=== PATIENT | female | born 1980 | race Caucasian/White ===

== ENCOUNTER 2017-01-28 11:28 | Emergency (ER) | payer SELFPAY ==
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
[2017-01-28] MEDS ORDERED: BOOSTRIX IM ONE (12:41)
[2017-01-28] MEDS ORDERED: ANCEF/NS 1 GM/50 ML 1 GM/50 ML BAG IV ONE (12:41)
[2017-01-28] MEDS ORDERED: NACL 0.9% 1000 ML 1,000 ML IV ONE (12:41)
[2017-01-28] MEDS ORDERED: MORPHINE IV ONE (12:41)
[2017-01-28] MEDS ORDERED: NACL 0.9% IR ONE (12:41)
[2017-01-28 12:42] LABS: Basophils % (Auto) 0.4 % (0.0-1.8); Eosinophils % (Auto) 1.9 % (0.0-4.3); Hematocrit 43.1 % (30.3-42.9); Hemoglobin 14.3 gm/dl (10.1-14.3); Mean Corpuscular HGB Conc 33 % (30-34); Mean Corpuscular Hemoglobin 29 pg (28-32); Mean Corpuscular Volume 87 fl (79-97); Platelet Count 200 K/mm3 (140-440); Red Blood Count 4.95 M/mm3 (3.65-5.03); Red Cell Distribution Width 13.9 % (13.2-15.2); White Blood Count 8.8 K/mm3 (4.5-11.0)
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
[2017-01-28 12:51] LABS: INR 1.01 (0.87-1.13)
[2017-01-28 12:52] LABS: Partial Thromboplastin Time 29.6 Sec. (24.2-36.6)
[2017-01-28 12:57] LABS: Alanine Aminotransferase 11 units/L (7-56); Albumin 4.6 g/dL (3.9-5); Albumin/Globulin Ratio 1.5 %; Alkaline Phosphatase 41 units/L (35-129); Anion Gap 18 mmol/L; Blood Urea Nitrogen 18 mg/dL (7-17); Calcium 9.4 mg/dL (8.4-10.2); Carbon Dioxide 25 mmol/L (22-30); Chloride 100.2 mmol/L (98-107); Creatine Kinase 127 units/L (30-135); Glucose 153 mg/dL (65-100); Lactate Dehydrogenase 178 units/L (91-180); Sodium 138 mmol/L (137-145); Total Protein 7.6 g/dL (6.3-8.2)
[2017-01-28] MEDS ORDERED: XYLOCAINE 2%/ EPI 1:200,000 INFILTRATI ONE (12:58)
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
[2017-01-28] MEDS ORDERED: XYLOCAINE 1%/ EPI 1:100,000 INFILTRATI ONE (13:41)
[2017-01-28] MEDS ORDERED: NACL 0.9% 1,000 ML IR ONE (13:41)
--- NOTE | 2017-01-28 13:43 | XRay Report ---
AP PELVIS: AP view of the pelvis shows normal pelvic contour and soft tissues. The hips are symmetric and within normal limits as are the sacroiliac joints. IMPRESSION: Normal pelvis.
--- NOTE | 2017-01-28 13:44 | XRay Report ---
LEFT FOOT, 2 views: The bony architecture is intact. Bony alignment is normal. No soft tissue abnormalities are seen. The joint spaces appear preserved. IMPRESSION: Normal left foot.
--- NOTE | 2017-01-28 13:44 | XRay Report ---
AP CHEST: HISTORY: chest pain AP view of the chest demonstrates a normal mediastinal and cardiac contour with clear lungs and normal bony and soft tissue structures. IMPRESSION: Unremarkable AP chest.
[2017-01-28] MEDS ORDERED: ANTIBIOTIC OINT TP ONE (14:19)
[2017-01-28] MEDS ORDERED: TRIPLE ANTIBIOTIC TP ONE ×2 (15:13→16:03)
[2017-01-28 15:22] LABS: Bilirubin,Urine NEG (Negative); Blood,Urine NEG (Negative); Ketones,Urine TR mg/dL (Negative); Leukocyte Esterase,Urine TR (Negative); Nitrite,Urine NEG (Negative); Protein,Urine <15 mg/dL mg/dL (Negative); Urobilinogen,Urine < 2.0 mg/dL (<2.0); WBC,Urine < 1.0 /HPF (0.0-6.0)
[2017-01-28 16:09] VITALS: BP 99/62
== END 2017-01-28 16:55 | disposition home or self-care (01) ==
LOC: ED 11:28
DX: S01.01XA Laceration without foreign body of scalp, initial encounter (principal); S91.312A Laceration without foreign body, left foot, initial encounter; W17.89XA Other fall from one level to another, initial encounter; Y93.39 Activity, other involving climbing, rappelling and jumping off; Y99.8 Other external cause status; Y92.89 Other specified places as the place of occurrence of the external cause
CPT/HCPCS: 12001; 36415; 70450; 71010; 72170; 73620; 80053; 81001; 81025; 82550; 83615; 84484; 85025; 85610; 85730; 90471; 90715; 96365; 96375; 99284; G0480; J0690; J2270; J7030; 80320; A6250

== ENCOUNTER 2017-02-07 14:39 | Emergency (ER) | payer SELFPAY ==
[2017-02-07 15:16] VITALS: BP 111/75
--- NOTE | 2017-02-07 15:35 | Emergency Department Report ---
Entered by SHALA ZARATE, acting as scribe for DARLING MARTE NP. Suture/Staple Removal - [facility] Chief Complaint: Laceration/Recheck/Suture Stated Complaint: SUTURE REMOVAL When Sutures or Marc Placed: 8-10 Days Ago (01/28/2017) Wound Location: right occipital head region ED Review of Systems ROS: Stated complaint: SUTURE REMOVAL Other details as noted in HPI Constitutional: no symptoms reported. denies: chills, fever Eyes: denies: eye pain, eye discharge, vision change ENT: denies: ear pain, throat pain Respiratory: denies: cough, shortness of breath, wheezing Cardiovascular: denies: chest pain, palpitations Endocrine: no symptoms reported Gastrointestinal: denies: abdominal pain, nausea, diarrhea Genitourinary: denies: urgency, dysuria, discharge Musculoskeletal: denies: back pain, joint swelling, arthralgia Skin: denies: rash, lesions Neurological: denies: headache, weakness, paresthesias Psychiatric: denies: anxiety, depression Hematological/Lymphatic: denies: easy bleeding, easy bruising ED Past Medical Hx - Past Medical History Previous Medical History?: Yes Hx Hypertension: No Hx Congestive Heart Failure: No Hx Diabetes: Yes (GDM) Hx Deep Vein Thrombosis: No Hx Renal Disease: No Hx Sickle Cell Disease: No Hx Seizures: No Hx Asthma: No Hx COPD: No Hx HIV: No - Surgical History Past Surgical History?: No - Social History Smoking Status: Never Smoker Substance Use Type: None - Medications Home Medications: Home Medications Medication Instructions Recorded Confirmed Last Taken Type Bacitracin Zinc Oint [Antibiotic 1 applicatio TP BID #2 tube 01/28/17 Unknown Rx Oint] Cephalexin [Keflex] 500 mg PO BID #10 capsule 01/28/17 Unknown Rx Ibuprofen [Motrin] 600 mg PO Q8H PRN #30 tablet 01/28/17 Unknown Rx Bacitracin [Bacitracin Ophth] 1 applicatio OP BID #1 tube 02/07/17 Unknown Rx Suture Removal Exam - Exam General: Vital signs noted. General: well nourished, well developed, 36 year old female in no acute distress and nontoxic in appearance Wound: No Pathologic Erythema, No Tenderness, No Drainage, No Pus, No Wound Dehiscence Other Systems: Head: Normocephalic. Healed laceration to right occipital region. NECK: Supple. No carotid bruits. No lymphadenopathy or thyromegaly Eyes: PERRL, Extraocular muscles are intact. LUNGS: Clear to auscultation. Non labor breathing. No intercostal retractions. HEART: Regular rate and rhythm without murmur, rubs or gallops. NEUROLOGIC: Alert and oriented x 3. Normal gait. Psych: Normal mood and behavior Skin: Clean, dry, and intact with no rash and no lesions. Abrasion present on left foot. ED Course Vital Signs 02/07/17 15:13 Temperature 98.7 F Pulse Rate 62 Respiratory 16 Rate Blood Pressure 111/75 O2 Sat by Pulse 100 Oximetry - Procedure Description Procedures done: 4 marc was removed from right occipital region using sterile equipment ED Recheck MDM - Medical Decision Making marc x 3 dc'd wound healing edges well approximated no erythema no discharge no bleeding no symptoms of infection Critical care attestation.: If time is entered above; I have spent that time in minutes in the direct care of this critically ill patient, excluding procedure time. ED Disposition Clinical Impression: Encounter for staple removal Disposition: DC-01 TO HOME OR SELFCARE Is pt being admited?: No Does the pt Need Aspirin: No Condition: Good Instructions: Suture Care (ED) Prescriptions: Bacitracin [Bacitracin Ophth] 1 applicatio OP BID #1 tube Time of Disposition: 15:33 This documentation as recorded by the ELLIOT fabian JASMINE,accurately reflects the service I personally performed and the decisions made by , DARLING MARTE NP.
== END 2017-02-07 15:35 | disposition home or self-care (01) ==
LOC: ED 14:39
DX: Z48.02 Encounter for removal of sutures (principal)

== ENCOUNTER 2018-01-03 12:44 | Emergency (ER) | payer OTHER ==
--- NOTE | 2018-01-03 15:58 | Emergency Department Report ---
Chief Complaint: Headache Stated Complaint: HEADACHE Time Seen by Provider: 01/03/18 15:25 - HPI History of Present Illness: 37-year-old [place] female presents to the emergency department with complaint of a one-week headache to left-sided head and going down into the neck. She denies any vision change, slurred speech, any neurological deficits, nausea, vomiting or fever. She tried Tylenol one time for her discomfort without any relief. Patient does not speak much Thai and translation services were used. - ROS Review of Systems: Positive for headache Negative for vision change, slurred speech, fever, nausea, vomiting - Exam Vital Signs: Vital Signs 01/03/18 12:49 Temperature 99.8 F H Pulse Rate 90 Respiratory 18 Rate Blood Pressure 113/77 O2 Sat by Pulse 97 Oximetry Physical Exam: Patient appears awake and alert in no acute distress. Pupils equal reactive to light. Extraocular motion is intact intact. Heart and lung sounds are normal to auscultation. MSE screening note: Focused history and physical exam performed. Due to findings the following was ordered: Patient will have a CT scan of the head without contrast. ED Disposition for MSE Condition: Stable Referrals: PRIMARY CARE, [Primary Care Provider] - 3-5 Days
[2018-01-03 16:59] LABS: HCG Qualitative,Urine Negative (Negative)
--- NOTE | 2018-01-03 18:22 | Cat Scan Report ---
FINAL REPORT PROCEDURE: CT HEAD/BRAIN WO CON TECHNIQUE: Computerized tomography of the head was performed without contrast material. HISTORY: headache COMPARISON: No prior studies are available for comparison. FINDINGS: Brain: Brain density appears normal. No evidence of intracranial hemorrhage. No parenchymal hemorrhage, mass lesions or mass effect are seen. No abnormal extraxial fluid collects or masses are seen. Ventricles: Ventricles are normal size and are midline. Bone Windows: No evidence of skull fracture. Paranasal sinuses: Visualized portions appear clear. Mastoid air cells: Clear IMPRESSION: Negative examination
[2018-01-03] MEDS ORDERED: MOTRIN PO ONE (20:08)
--- NOTE | 2018-01-03 20:08 | Emergency Department Report ---
ED Headache HPI - General Chief Complaint: Headache Stated Complaint: HEADACHE Time Seen by Provider: 01/03/18 15:25 - History of Present Illness Initial Comments: 37-year-old [place]ian female presents to the emergency department with complaint of a one-week headache to left-sided head and going down into the neck. She denies any vision change, slurred speech, any neurological deficits, nausea, vomiting or fever. She tried Tylenol one time for her discomfort without any relief. Patient does not speak much Bengali and translation services were used. 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 Patient does admit to some chills but no fever no nausea no vomiting no change in vision no difficulty finding words. Patient denies any past medical history currently takes no medications on a daily basis and has no known drug allergies. Timing/Duration: 1 week Quality: mild Head Injury Location: frontal Recent Head Trauma: no recent headache/trauma Associated Symptoms: denies: fatigue, fever/chills, loss of consciousness, nausea/vomiting, nasal congestion, nasal drainage, rash, vision changes, weakness Allergies/Adverse Reactions: Allergies No Known Allergies Allergy (Unverified 01/28/17 11:35) Home Medications: Ambulatory Orders Bacitracin Zinc Oint [Antibiotic Oint] 1 applicatio TP BID #2 tube 01/28/17 Cephalexin [Keflex] 500 mg PO BID #10 capsule 01/28/17 Bacitracin [Bacitracin Ophth] 1 applicatio OP BID #1 tube 02/07/17 Baclofen [Lioresal] 10 mg PO TID #9 tab 01/03/18 Ibuprofen [Motrin 600 MG tab] 600 mg PO Q8H PRN #30 tablet 01/03/18 ED Review of Systems ROS: Stated complaint: HEADACHE Other details as noted in HPI Constitutional: denies: chills, fever Eyes: denies: eye pain, eye discharge, vision change ENT: denies: ear pain, throat pain Respiratory: denies: cough, shortness of breath, wheezing Cardiovascular: denies: chest pain, palpitations Endocrine: no symptoms reported Gastrointestinal: denies: abdominal pain, nausea, diarrhea Genitourinary: denies: urgency, dysuria, discharge Musculoskeletal: myalgia (left lateral neck). denies: back pain, joint swelling , arthralgia Skin: denies: rash, lesions Neurological: headache. denies: weakness, paresthesias Psychiatric: denies: anxiety, depression Hematological/Lymphatic: denies: easy bleeding, easy bruising ED Past Medical Hx - Past Medical History Hx Hypertension: No Hx Congestive Heart Failure: No Hx Diabetes: Yes (GDM) Hx Deep Vein Thrombosis: No Hx Renal Disease: No Hx Sickle Cell Disease: No Hx Seizures: No Hx Asthma: No Hx COPD: No Hx HIV: No - Social History Smoking Status: Never Smoker Substance Use Type: None - Medications Home Medications: Home Medications Medication Instructions Recorded Confirmed Last Taken Type Bacitracin Zinc Oint [Antibiotic 1 applicatio TP BID #2 tube 01/28/17 Unknown Rx Oint] Cephalexin [Keflex] 500 mg PO BID #10 capsule 01/28/17 Unknown Rx Bacitracin [Bacitracin Ophth] 1 applicatio OP BID #1 tube 02/07/17 Unknown Rx Baclofen [Lioresal] 10 mg PO TID #9 tab 01/03/18 Unknown Rx Ibuprofen [Motrin 600 MG tab] 600 mg PO Q8H PRN #30 tablet 01/03/18 Unknown Rx ED Physical Exam - General Limitations: No Limitations General appearance: alert, in no apparent distress - Head Head exam: Present: atraumatic, normocephalic - Eye Eye exam: Present: normal appearance - ENT ENT exam: Present: mucous membranes moist - Neck Neck exam: Present: normal inspection, full ROM. Absent: tenderness, lymphadenopathy - Respiratory Respiratory exam: Present: normal lung sounds bilaterally. Absent: respiratory distress - Cardiovascular Cardiovascular Exam: Present: regular rate, normal rhythm. Absent: systolic murmur, diastolic murmur, rubs, gallop - GI/Abdominal GI/Abdominal exam: Present: soft, normal bowel sounds - Extremities Exam Extremities exam: Present: normal inspection - Back Exam Back exam: Present: normal inspection - Neurological Exam Neurological exam: Present: alert, oriented X3 - Expanded Neurological Exam Expanded Patient oriented to: Present: person, place, time Speech: Present: fluid speech Cranial nerves: EOM's Intact: Normal, Gag Reflex: Normal, Tongue Deviation: Normal, Nystagmus: Normal Cerebellar function: Finger to Nose: Normal, Heel to Silvestre: Normal, Romberg: Normal Upper motor neuron: Pantera Neglect: Normal, Pronator Drift: Normal Sensory exam: Upper Extremity Light Touch: Normal, Upper Extremity Temperature: Normal, Lower Extremity Pin Prick: Normal, Lower Extremity Temperature: Normal Motor strength exam: RUE: 4, LUE: 4, RLE: 4, LLE: 4 Best Eye Response (Jose Alfredo): (4) open spontaneously Best Motor Response ([place] Alfredo): (6) obeys commands Best Verbal Response ([place]): (5) oriented Jose Alfredo Total: 15 - Psychiatric Psychiatric exam: Present: normal affect, normal mood - Skin Skin exam: Present: warm, dry, intact, normal color. Absent: rash ED Course Vital Signs 01/03/18 12:49 Temperature 99.8 F H Pulse Rate 90 Respiratory 18 Rate Blood Pressure 113/77 O2 Sat by Pulse 97 Oximetry ED Medical Decision Making - Radiology Data Radiology results: report reviewed, image reviewed CT of brain normal examination - Medical Decision Making Patient's been evaluated by this provider as well as Dr. Gutierrez. CT scan was ordered which shows normal examination. I will give patient ibuprofen now and discharge her in ibuprofen and baclofen for neck strain. 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 Discussed the patient ibuprofen would help with the neck as well as a headache. Patient verbalized understanding. I discussed the patient and she can follow[facility] with [facility] if symptoms persist or gets worse. Critical care attestation.: If time is entered above; I have spent that time in minutes in the direct care of this critically ill patient, excluding procedure time. ED Disposition Clinical Impression: Headache Qualifiers: Headache type: unspecified Headache chronicity pattern: acute headache Intractability: intractable Qualified Code(s): R51 - Headache Disposition: DC-01 TO HOME OR SELFCARE Is pt being admited?: No Does the pt Need Aspirin: No Condition: Stable Instructions: Acute Headache (ED) Additional Instructions: Please take ibuprofen as prescribed. Baclofen for muscle strain. Follow up with her primary care provider if symptoms persist or gets worse. Her CT scan of your head with normal examination. Prescriptions: Baclofen [Lioresal] 10 mg PO TID #9 tab Ibuprofen [Motrin 600 MG tab] 600 mg PO Q8H PRN #30 tablet PRN Reason: Pain Referrals: PRIMARY CARE, [Primary Care Provider] - 3-5 Days [facility] [Provider Group] - 3-5 Days Forms: Work/School Release Form(ED)
[2018-01-03 20:37] VITALS: BP 112/77
== END 2018-01-03 20:15 | disposition home or self-care (01) ==
LOC: ED 12:44
DX: R51 Headache (principal); E11.9 Type 2 diabetes mellitus without complications
CPT/HCPCS: 70450; 81025